=== PATIENT | male | born 1980 | race Caucasian/White ===

== ENCOUNTER 2018-04-10 07:58 | Emergency (ER) | payer BC ==
[2018-04-10 08:16] VITALS: BP 112/67
--- NOTE | 2018-04-10 08:21 | UC ---
Throat Pain/Nasal Patric HPI - HPI Summary HPI Summary: 27 yo WM p/w sore throat x 2 days associated with nasal congestion and right frontal sinus BRAGG with clear nasal drainage and mild right ear pain. - History of Current Complaint Stated Complaint: SORE THROAT Time Seen by Provider: 04/10/18 08:13 Hx Obtained From: Patient Onset/Duration: Gradual Onset Severity: Moderate - Allergies/Home Medications Allergies/Adverse Reactions: Allergies Allergy/AdvReac Type Severity Reaction Status Date / Time Penicillins Allergy Hives Verified 04/10/18 08:13 Home Medications: Home Medications Dm/PE/Acetaminophen/Doxylamine [Rosanne-[place] Plus Allerg-Cough] 1 each PO ONCE 04/10/18 [History Confirmed 04/10/18] PMH/Surg Hx/FS Hx/Imm Hx - Surgical History Surgical History: Yes Surgery Procedure, Year, and Place: HERNIA REPAIR - Social History Alcohol Use: Occasionally Substance Use Type: None - Immunization History Most Recent Influenza Vaccination: NOT THIS SEASON Review of Systems Constitutional: Negative Skin: Negative Eyes: Negative ENT: Sore Throat, Ear Ache, Nasal Discharge, Sinus Congestion, Sinus Pain/ Tenderness Respiratory: Negative Cardiovascular: Negative Gastrointestinal: Negative Genitourinary: Negative Motor: Negative Neurovascular: Negative Musculoskeletal: Negative Neurological: Negative Psychological: Negative All Other Systems Reviewed And Are Negative: Yes Physical Exam - Summary Physical Exam Summary: Vital Signs Reviewed: Yes Appearance: Positive: Well-Appearing Skin: Positive: Warm Head/Face: Positive: nasal congestion, mild clear d/c Eyes: Positive: Normal, EOMI, OMERO ENT: Positive: moderate pharyngeal erythema, w/o exudates Neck: Positive: Supple Respiratory/Lung Sounds: Positive: Clear to Auscultation Cardiovascular: Positive: Normal, RRR, S1, S2 Abdomen Triage Information Reviewed: Yes Throat Pain/Nasal Course/Dx - Course Course Of Treatment: Rapid strep neg - Differential Dx/Diagnosis Provider Diagnoses: Acute Pharyngitis- throat cx sent out. URI Discharge - Sign-Out/Discharge Documenting (check all that apply): Patient Departure All imaging exams completed and their final reports reviewed: Yes - Discharge Plan Condition: Stable Disposition: HOME Prescriptions: Pseudoephedrine HCL ER TAB* [Sudafed 12 Hour*] 120 mg PO BID 5 Days #10 tab.er Patient Education Materials: Upper Respiratory Infection (ED), Pharyngitis (ED) - Billing Disposition and Condition Condition: STABLE Disposition: Home
== END 2018-04-10 09:28 | disposition home or self-care (01) ==
LOC: UCCORT 07:58
DX: J02.9 Acute pharyngitis, unspecified (principal); J06.9 Acute upper respiratory infection, unspecified
CPT/HCPCS: 87070; 87651; 99202; G0463